=== PATIENT | female | born 1980 | race Caucasian/White ===

== ENCOUNTER 2017-08-27 20:02 | Emergency (ER) | payer MEDICAID ==
[2017-08-27 20:08] VITALS: BP 130/103
[2017-08-27] MEDS ORDERED: CETI-176 PO (20:12)
--- NOTE | 2017-08-27 20:19 | ER Report ---
History and Physical Time Seen By MD: 20:19 Hx. of Stated Complaint: PATIENT HIT HER HEAD ON A WOODEN SHELF ABOUT AN HOUR AND HALF AGO, PATIENT DENIES ANY LOC OR VOMITING. PATIENT TOOK IBPROPHEN AND IT SEEMS TO HAVE HELPED. HPI/ROS CHIEF COMPLAINT: Hit head HISTORY OF PRESENT ILLNESS: 36-year-old female patient presents to emergency room with complaint of hitting her head. Patient states she was playing laser tag with her children and her friend. She is crawling through a tunnel and ran right into a corner. She states that she did not have any loss of consciousness. Patient states she had significant amounts of pain to her head. She states that when she felt her head that there was an indentation. She states it is swollen since then. She denies any nausea, vomiting, dizziness, visual changes. She states she did take ibuprofen for this and feel significantly better at this time. Allergies: Coded Allergies: No Known Drug Allergies (Unverified , 08/27/17) Home Meds Reported Medications Cetirizine Hcl (ZYRTEC) 10 Mg Tablet, 10 MG PO QDAY, TAB 08/27/17 Past Medical/Surgical History Patient has a past medical history of migraines, asthma. Patient has surgical history of section, skin biopsy. Reviewed Nurses Notes: Yes Hx Substance Use Disorder: No Hx Alcohol Use: No Constitutional Vital Sign - Last 24 Hours 08/27/17 20:08 Temp 98.3 Pulse 82 Resp 16 B/P (MAP) 130/103 Pulse Ox 97 Physical Exam General appearance: Alert no distress. Respiratory: Chest is non tender, lungs are clear to auscultation. Cardiac: Regular rate and rhythm. Neuro: Patient is alert and oriented 4, cranial nerves II through XII grossly intact. DIFFERENTIAL DIAGNOSIS: After history and physical exam differential diagnosis was considered for head injury including but not limited to concussion, skull fracture, intraparenchymal contusion, subarachnoid, subdural and epidural hematoma. Medical Decision Making ED Course/Re-evaluation ED Course Patient was admitted exam room, history and physical were obtained. Differential diagnoses were considered. Examination patient was alert and oriented, cranial nerves II through XII grossly intact. Patient does have a bump on the left side of her forehead. He is tender to touch. We discussed doing a CT scan of the head. Patient asked if it was necessary to do the CT scan. I discussed with the patient that I did not believe that there be any intracranial hemorrhage, any skull fracture, however I want to go ahead and do that to put her mind at ease. Patient states that she would be okay waiting. She states she does feel better with ibuprofen. We did discuss things to watch out for including but not limited to uncontrollable vomiting, dizziness, confusion, increased irritability or difficulty to arouse. I did ask if she had a friend who would be able to stay with her tonight. Patient states she was able to assess somebody stay with her tonight. Patient states she would like to go home at this time. We will go ahead and discharge patient home and she is to follow-up with primary care provider next week. Patient verbalized understanding and agreement with plan. Decision to Disposition Date: August 27, 2017 Decision to Disposition Time: 20:38 Depart Departure Latest Vital Signs Vital Signs Date Time Temp Pulse Resp B/P (MAP) Pulse Ox O2 Delivery O2 Flow Rate FiO2 08/27/17 20:08 98.3 82 16 130/103 97 Impression: Primary Impression: Concussion Condition: Improved Disposition: HOME OR SELF-CARE Referrals: DURAN SIMON PA-C (PCP) Patient Instructions: Concussion (ED) Additional Instructions: Get plenty of rest. Limit activity by pain. Limit TV and computer time. Monitor for confusion, increased irritability, uncontrollable vomiting, worsening headache or difficulty to arouse. Return to the ER if those are to occur. Follow up with your primary care provider in the next week. Problem Qualifiers Primary Impression: Concussion Encounter type: initial encounter Loss of consciousness presence/duration: without LOC Qualified Codes: S06.0X0A - Concussion without loss of consciousness, initial encounter ISABELA WHEAT August 27, 2017 20:18
== END 2017-08-27 20:46 | disposition home or self-care (01) ==
LOC: ER 20:18
DX: S06.0X0A Concussion without loss of consciousness, initial encounter (principal)
CPT/HCPCS: 99282

== ENCOUNTER 2017-12-04 19:37 | Emergency (ER) | payer MEDICAID ==
[~2017-12-04 19:37] MED LIST: CETI-176 PO
[2017-12-04 19:40] VITALS: BP 120/98
[2017-12-04] MEDS ORDERED: OXYM30MI5 NS (19:45)
[2017-12-04] MEDS ORDERED: MONT10TA PO (19:45)
[2017-12-04] MEDS ORDERED: LORA10CA3 PO (19:45)
== END 2017-12-04 20:38 | disposition left against medical advice (07) ==
LOC: ER 20:36
DX: Z53.21 Procedure and treatment not carried out due to patient leaving prior to being seen by health care provider (principal)

== ENCOUNTER → 2017-12-06 | Outpatient (REF) | payer MEDICAID ==
[~2017-12-06] MED LIST changes: +LORA10CA3 PO; +MONT10TA PO; +OXYM30MI5 NS
== END ==
LOC: ZZSENDIN 16:51
PROVIDERS: ATTEND Physician Assistant Medical
DX: M25.579 Pain in unspecified ankle and joints of unspecified foot (principal)
CPT/HCPCS: 85651

== ENCOUNTER → 2018-01-31 | Outpatient (CLI) | payer MEDICAID ==
[~2018-01-31] MED LIST changes: +ASCO-182 PO; +DIPH-740 PO; +IBUP-136 PO; +PRED-1 PO; +PREN-127 PO; +VITA1CAP46 PO
[2018-01-31 11:12] LABS: PLATELET COUNT, AUTOMATED 409 K/uL (150-450)
== END ==
LOC: LAB 10:51
PROVIDERS: ATTEND Internal Medicine
DX: E61.1 Iron deficiency (principal); R53.83 Other fatigue; M79.605 Pain in left leg
CPT/HCPCS: 36415; 82040; 82247; 82306; 82310; 82374; 82435; 82565; 82607; 82728; 82746; 82947; 83540; 83550; 83735; 84075; 84132; 84155; 84295; 84443; 84450; 84460; 84520; 85025; 85379

== ENCOUNTER → 2018-02-16 | Outpatient (CLI) | payer MEDICAID ==
[~2018-02-16] MED LIST changes: +FERR-53 PO
--- NOTE | 2018-02-16 12:29 | RADIOLOGY IMAGING REPORT ---
FACILITY: [facility] [place] PATIENT NAME: Geeta Angulo : 1980 MR: [id number] V: [id number] EXAM DATE: ORDERING PHYSICIAN: BONIFACIO GLOVER TECHNOLOGIST: Location: [facility] Patient: Geeta Angulo : 1980 Visit/Account:[id number] Date of Sevice: 02/16/2018 Exam type: VENOUS DOPP LOW LEFT EXTREMITY History: pain left upper calf Comparison: None. Findings: Left lower extremity veins were imaged including the left common femoral vein greater saphenous vein superficial femoral vein popliteal vein posterior tibial vein peroneal vein anterior tibial vein reve aling no evidence of intraluminal thrombi the veins were compressible and demonstrated augmentation IMPRESSION: 1. No sonographic evidence DVT involving the left lower extremity veins Report Dictated By: Raya Sosa MD at 02/16/2018 12:24 PM Report E-Signed By: Raya Sosa MD at 02/16/2018 12:25 PM WSN:[email or web address]
== END ==
LOC: RAD 10:11
PROVIDERS: ATTEND Internal Medicine
DX: M79.662 Pain in left lower leg (principal)

== ENCOUNTER → 2018-03-21 | Outpatient (CLI) | payer MEDICAID | LOC: RAD 13:35 | PROVIDERS: ATTEND Psychiatry & Neurology Neurology | DX: Z02.9 Encounter for administrative examinations, unspecified (principal) ==

== ENCOUNTER → 2018-03-30 | Outpatient (CLI) | payer MEDICAID ==
--- NOTE | 2018-03-30 15:36 | RADIOLOGY IMAGING REPORT ---
FACILITY: [facility] [place] PATIENT NAME: Geeta Angulo : 1980 MR: [id number] V: [id number] EXAM DATE: ORDERING PHYSICIAN: DYLAN BENAVIDES TECHNOLOGIST: [place] [facility] [place] Geeta Angulo : 1980 Visit/Account:[id number] Date of Sevice: 03/30/2018 Exam type: LUMBAR SPINE COMP W/FLEX/EXT History: Carotid back pain radiating to hips, worsening over the last few weeks Comparison: None. Findings: Six views of the lumbar spine were submitted There are four nonrib-bearing lumbar-type vertebral bodies present and a sacralized transitional lumb ar vertebra. There is a small rudimentary disc space at the transitional vertebra and the sacrum. T here is no evidence of acute fractures or subluxations. The remaining disc spaces appear well-preser ed IMPRESSION: 1. Four nonrib-bearing lumbar type vertebra with a sacralized transitional lumbar segment. Is a sma ll rudimentary disc space at this level. Disc spaces otherwise appear well-preserved with no evidence of acute fractures or subluxations Report Dictated By: Raya Sosa MD at 03/30/2018 3:29 PM Report E-Signed By: Raya Sosa MD at 03/30/2018 3:32 PM WSN:[email or web address]
== END ==
LOC: RAD 12:37
PROVIDERS: ATTEND Psychiatry & Neurology Neurology
DX: Q76.49 Other congenital malformations of spine, not associated with scoliosis (principal)
CPT/HCPCS: 72114

== ENCOUNTER → 2018-05-10 | Outpatient (CLI) | payer MEDICAID ==
[~2018-05-10] MED LIST changes: +FLUT16SP19 NS; +NYST100016 PO; +PANT40TA65 PO
[2018-05-10 12:09] LABS: PLATELET COUNT, AUTOMATED 320 K/uL (150-450)
== END ==
LOC: LAB 11:53
PROVIDERS: ATTEND Internal Medicine
DX: M79.605 Pain in left leg (principal); E61.1 Iron deficiency; R53.83 Other fatigue
CPT/HCPCS: 36415; 82040; 82247; 82310; 82374; 82435; 82565; 82728; 82947; 83540; 83550; 84075; 84132; 84155; 84295; 84450; 84460; 84520; 85025

== ENCOUNTER 2018-09-02 09:22 | Outpatient (RCR) | payer MEDICAID ==
[2018-06-17 10:28] VITALS: BP 135/88
[2018-06-17 11:54] LABS: PLATELET COUNT, AUTOMATED 305 K/uL (150-450)
--- NOTE | 2018-06-18 07:59 | ONCOLOGY CONSULTATION ---
EVENT DATE: June 17, 2018 REFERRING PHYSICIAN Gideon Farah MD REASON FOR CONSULTATION Evaluation and management of patient with history of iron deficiency anemia. HEMATOLOGY HISTORY Patient is a 37-year old female who moved to [place] three years ago from [place] and patient had stroke-like episode when she came to [place] and patient was found to have anemia and hypoxemia. She had a history of iron deficiency anemia before. She had excessive bleeding during her menstruations. Patient used multi-vitamins and iron studies but she stopped her iron studies about two to three weeks ago. She responded to iron supplementation before. She also gained weight and her TSH check was normal. She had migraine headaches and has been seen by neurologist in the past and MRI of the brain showed malformation but does not require any surgery at the moment. She has also tested positive for BETSY and followed by informatica mdm developer but no definitive diagnosis is made so far. She has also episodes of what looks like Raynaud's phenomenon. She had CBC done in April 2018, which showed white count 8.1, hemoglobin 15.5, hematocrit 48.6, platelets 320,000. Her chem panel was normal except for chloride 108. Iron studies showed serum iron 720, TIBC 350, iron saturation 20.3% and ferritin was 15, which was up from 5 before. B12 was normal at 709 and folate was more than 22.3 in January 2018. Patient denies any constitutional symptoms but she is complaining of being extremely fatigued and tired all the time. PAST MEDICAL HISTORY 1. Iron deficiency anemia. 2. 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 3. Allergies with asthma. 4. Migraine. PAST SURGICAL HISTORY 1. Skin cancer removal. 2. Caesarean section in 2005. FAMILY HISTORY Maternal grandmother had breast cancer. Paternal grandmother had acute leukemia. Paternal cousin had chronic leukemia. Father is treated with phlebotomy session. She is not sure if it is due to polycythemia or hemochromatosis. SOCIAL HISTORY Patient is . She is a single mom. She has two children. 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 She denies any abuse of tobacco, alcohol or illicit drugs. CURRENT MEDICATION Benadryl 25 mg every six hours p.r.n.. ALLERGIES PROCHLORPERAZINE, which makes her, as per patient said, "got crazy". REVIEW OF SYSTEMS CONSTITUTIONAL: No appetite or weight change. No fever, chills or sweating. No recent infection. HEENT: Ears: No tinnitus or hearing problem. Nose: No nasal discharge or epistaxis. Throat: No sore throat or mouth ulcers. Eyes: No diplopia or visual changes. RESPIRATORY: No shortness of breath. No cough, expectoration or hemoptysis. CARDIOVASCULAR: No chest pain, orthopnea, or paroxysmal nocturnal dyspnea (PND). No edema. No palpitations. GASTROINTESTINAL: She has constipation. GENITOURINARY: She has heavy periods. MUSCULOSKELETAL: She has pain in her knees. NEUROLOGICAL: No tingling or numbness in the hands or feet. No headaches or convulsions. HEMATOLOGIC/LYMPHATIC: She is extremely fatigued and tired. SKIN: No skin rash or lumps. PSYCHIATRIC: No anxiety or depression. PHYSICAL EXAMINATION GENERAL: Looks stable. Well-developed, well-nourished, and in no acute distress. VITAL SIGNS: Blood pressure 135/88, pulse 81 per minute, respirations 16 per minute, temperature 98.5, pulse ox 96% on room air. HEENT: Head: Atraumatic. No sinus tenderness to palpation. Eyes: No icterus or conjunctivitis. Mouth and Throat: No oral thrush or mucositis. NECK: Supple. No cervical or supraclavicular lymphadenopathy. LUNGS: Clear to auscultation and percussion bilaterally. HEART: Regular rate and rhythm. No gallops, murmurs, clicks or rubs. ABDOMEN: Soft and lax. No tenderness. No hepatosplenomegaly. No masses. EXTREMITIES: No cyanosis, clubbing or edema. LYMPHATICS: No peripheral lymphadenopathy. NEUROLOGICAL: Conscious, alert and oriented x3. No focal motor or sensory deficits. PSYCHIATRIC: Mood and affect appear normal. SKIN: No skin rash, bruise or purpuric eruption. IMPRESSION History of iron deficiency anemia and the patient showed me report of her CBC in the past when she was in [place], which actually showed microcystic polycythemia. Her red blood cell count was high but her MCV was low and she was anemic at 10 g/dL. I am planning to repeat her iron studies including ferritin and because of her underlying inflammatory disease I am planning to check also soluble transferrin receptor assay, which if it comes back high this will make the diagnosis of iron deficiency confirmed. For her anemia also, I am planning to run the serum protein electrophoresis, B12 and folate levels, methylmalonic acid assay and red cell folate. I will check also her erythropoietin level. I am planning to see her after that for further evaluation and management. PLAN 1. CBC. 2. Retic count. 3. Haptoglobin. 4. Serum protein electrophoresis. 5. Erythropoietin level. 6. Iron studies with ferritin. 7. Soluble transferrin receptor assay. 8. B12 and folic acid level. 9. Methylmalonic acid assay. 10. Red cell folate. 11. Patient to return in one week for further evaluation and management. 12. Patient to contact us for any new concerns or complaints. MARIAM
[2018-07-01 10:02] VITALS: BP 124/86
--- NOTE | 2018-07-01 21:33 | [facility] ONCOLOGY NOTE ---
EVENT DATE: July 01, 2018 DIAGNOSIS Iron deficiency anemia. CHIEF COMPLAINT Patient is here today for followup of her iron deficiency anemia. HEMATOLOGY HISTORY Patient is a 37-year old female who moved to [place] three years ago from [place]. Patient had stroke-like episode when she came to [place], and patient was found to have anemia and hypoxemia. She had a history of iron deficiency anemia before. She had excessive bleeding during her menstruations. Patient used multivitamins and iron supplements, but she stopped her iron supplements about two to three weeks ago. She responded to iron supplementation before. She also gained weight, and her TSH check was normal. She had migraine headaches and has been seen by neurologist in the past. MRI of the brain showed malformation, but does not require any surgery at the moment. She has also tested positive for BETSY and followed by dental billing specialist, but no definitive diagnosis is made so far. She has also episodes of what looks like Raynaud phenomenon. She had CBC done in April 2018, which showed white count 8.1, hemoglobin 15.5, hematocrit 48.6, platelets 320,000. Her chem panel was normal except for chloride 108. Iron studies showed serum iron 720, TIBC 350, iron saturation 20.3%, and ferritin was 15, which was up from 5 before. B12 was normal at 709, and folate was more than 22.3 in January 2018. Patient denies any constitutional symptoms, but she is complaining of being extremely fatigued and tired all the time. Repeat CBC showed white count 8.1, hemoglobin 15.8, hematocrit 47.3, platelets 305,000. Haptoglobin level was 149. Absolute retic was 0.0674. Serum iron 76, TIBC 370, iron saturation 20.5%, and ferritin was 10. Soluble transferrin receptor assay was 4.2. Vitamin B12 level was 672. Serum folate was more than 22.3. Erythropoietin level was 22. HISTORY OF PRESENT ILLNESS Patient is here today for followup of her iron deficiency anemia. She is doing fine currently except having mild fatigue and dry cough. PAST MEDICAL HISTORY 1. Iron deficiency anemia. 2. Chronic inflammation or autoimmune disease with positive BETSY with what looks like Raynaud phenomenon. 3. Allergies with asthma. 4. Migraine. PAST SURGICAL HISTORY 1. Skin cancer removal. 2. Caesarean section in 2005. FAMILY HISTORY Maternal grandmother had breast cancer. Paternal grandmother had acute leukemia. Paternal cousin had chronic leukemia. Father is treated with phlebotomy session. She is not sure if it is due to polycythemia or hemochromatosis. SOCIAL HISTORY Patient is . She is a single mom. She has two children. 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 She denies any abuse of tobacco, alcohol, or illicit drugs. CURRENT MEDICATION Benadryl 25 mg every six hours p.r.n.. ALLERGIES PROCHLORPERAZINE which makes her, as per patient said, "go crazy." REVIEW OF SYSTEMS CONSTITUTIONAL: No appetite or weight change. No fever, chills, or sweating. No recent infection. HEENT: Ears: No tinnitus or hearing problem. Nose: No nasal discharge or epistaxis. Throat: No sore throat or mouth ulcers. Eyes: No diplopia or visual changes. RESPIRATORY: No shortness of breath. She has a dry cough. No expectoration or hemoptysis. CARDIOVASCULAR: No chest pain, orthopnea, or paroxysmal nocturnal dyspnea (PND). No edema. No palpitations. GASTROINTESTINAL: No nausea or vomiting. No diarrhea or constipation. No change in bowel movements. No heartburn or swallowing difficulties. No abdominal pain. No jaundice. No hematemesis, melena, or rectal bleeding. GENITOURINARY: No hematuria or dysuria. MUSCULOSKELETAL: No pain in the muscles, joints, or bones. NEUROLOGICAL: No tingling or numbness in the hands or feet. No headaches or convulsions. HEMATOLOGIC/LYMPHATIC: No bleeding or easy bruising. No weakness. She is fatigued. No enlarged lymph nodes. SKIN: No skin rash or lumps. PSYCHIATRIC: No anxiety or depression. PHYSICAL EXAMINATION GENERAL: Looks stable. Well developed, well nourished, and in no acute distress. VITAL SIGNS: Blood pressure 124/86, pulse 82 per minute, respirations 16 per minute, temperature 97, pulse ox 94% on room air. HEENT: Head: Atraumatic. No sinus tenderness to palpation. Eyes: No icterus or conjunctivitis. Mouth and throat: No oral thrush or mucositis. NECK: Supple. No cervical or supraclavicular lymphadenopathy. LUNGS: Clear to auscultation and percussion bilaterally. HEART: Regular rate and rhythm. No gallops, murmurs, clicks, or rubs. ABDOMEN: Soft and lax. No tenderness. No hepatosplenomegaly. No masses. EXTREMITIES: No cyanosis, clubbing, or edema. LYMPHATICS: No peripheral lymphadenopathy. NEUROLOGICAL: Conscious, alert, and oriented times three. No focal motor or sensory deficits. PSYCHIATRIC: Mood and affect appear normal. SKIN: No skin rash, bruise, or purpuric eruption. DIAGNOSTIC DATA CBC showed white count 8.1, hemoglobin 15.8, hematocrit 47.3, platelets 305,000. Haptoglobin was 149. Absolute reticulocyte was 0.674. Serum ferritin was 10, iron 76, TIBC 370, iron saturation 20.5%. Soluble transferrin receptor assay was 4.2. The vitamin B12 level was 672. Serum folate was more than 22.3, and erythropoietin level was 22. ASSESSMENT Iron deficiency anemia with microcystic polycythemia, most probably due to iron supplementation in the presence of anemia. Her current CBC looks normal, but her iron studies showed evidence of iron deficiency. Her serum ferritin is only 10, saturation 20.5%, TIBC 370, serum iron 76. Soluble transferrin receptor assay was high normal at 4.2. I am planning to supplement her with iron. I am planning to give her ferrous sulfate 325 mg three times daily. I will see her in two months from now with repeat CBC and iron studies with ferritin to decide about further management. PLAN 1. Ferrous sulfate 325 mg t.i.d. with meals. 2. Patient to return in two months with CBC, iron studies with ferritin. 3. Patient to contact us for any new concerns or complaints. MARIAM
[2018-08-31 09:14] LABS: PLATELET COUNT, AUTOMATED 324 K/uL (150-450)
[2018-08-31 09:23] VITALS: BP 119/76
[2018-09-02 09:31] VITALS: BP 120/89
[2018-09-02] MEDS ORDERED: CETI10CA8 PO (09:35)
--- NOTE | 2018-09-02 11:57 | ONCOLOGY FOLLOW UP NOTE ---
EVENT DATE: September 02, 2018 DIAGNOSIS Iron deficiency anemia. CHIEF COMPLAINT Patient is here today for followup of her iron deficiency anemia. HEMATOLOGY HISTORY Patient is a 37-year old female who moved to [place] three years ago from [place]. Patient had stroke-like episode when she came to [place], and patient was found to have anemia and hypoxemia. She has a history of iron deficiency anemia. She reports excessive bleeding during her menses. She did use multivitamin and iron supplements but stopped those in early June 2018. She has responded well to iron supplementation in the past. Most recently, she has been gaining weight and GP checked her TSH, which was normal. She also has a history of migraine headaches and has been seen by Neurology in the past. MRI of the brain showed Chiari malformation but does not require any surgery at that time. She has also had a positive BETSY in the past and is followed by rheumatology, although no definitive diagnosis has been made so far. The patient is quite frustrated about that. She has also had episodes of what sounds like Raynaud phenomenon. Her hemoglobin has been normal in the 15.5 range. Hematocrit has also been normal. She had a chem panel which did reveal a mildly elevated chloride at 108 in the past. B12 and folate have been normal in the recent past. TSH back in January 2018 was normal at 2.58. Erythropoietin level was 22. At her last visit in June, we instructed her to continue with iron sulfate 325 mg t.i.d. with meals. HISTORY OF PRESENT ILLNESS Geeta is here today for ongoing followup regarding her iron deficiency anemia. Currently, she reports that she is doing better, although does still have some mild fatigue She is still having difficulty with her weight and, in fact, does not want us to tell her what her weight was today when vital signs were taken. She reports that she is a bit frustrated about her iron deficiency diagnosis, which apparently spans back to a couple of years. She tells me she is seeing rheumatology as noted above. Patient tells me that in the past, prior to her last visit with us in June, she was instructed to discontinue iron and attributes that to her decreased ferritin and worsening fatigue. Today, she tells me that she is back on oral iron since her visit visit, although admits at times she does forget and is not 100% compliant. Additionally, she tells me that she has only been taking one tablet a day but tells me that she must have misunderstood instructions. She is also quite anxious about iron deficiency anemia and its relation to possible colon cancer. She tells me that this causes her quite a bit of anxiety. She has been tolerating oral iron well. Energy levels are much improved. PAST MEDICAL HISTORY 1. Iron deficiency anemia. 2. Chronic inflammation or autoimmune disease with positive BETSY with what looks like Raynaud phenomenon. 3. Allergies with asthma. 4. Migraine. PAST SURGICAL HISTORY 1. Skin cancer removal. 2. Caesarean section in 2005. FAMILY HISTORY Maternal grandmother had breast cancer. Paternal grandmother had acute leukemia. Paternal cousin had chronic leukemia. Father is treated with phlebotomy session. She is not sure if it is due to polycythemia or hemochromatosis. SOCIAL HISTORY Patient is . She is a single mom. She has two children. 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 She denies any abuse of tobacco, alcohol, or illicit drugs. ALLERGIES PROCHLORPERAZINE, which as per patient makes her "go crazy." CURRENT MEDICATION 1. Benadryl 25 mg one p.o. every six hours p.r.n. 2. Zyrtec 10 mg daily. 3. Iron sulfate 325 mg one p.o. q.d. 4. Pantoprazole 40 mg p.o. q.d. 5. Ibuprofen 200 mg one p.o. every six hours p.r.n. 6. Fluticasone nasal spray two sprays to each nostril daily. REVIEW OF SYSTEMS CONSTITUTIONAL: Patient denies any recent fevers, chills or night sweats. No recent infections. HEENT: No vision changes. No tinnitus. No mouth sores. No dysphagia or odynophagia. RESPIRATORY: No shortness of breath. She has only occasional dyspnea on exertion. She has only an occasional dry cough. No sputum production or hemoptysis. No pleuritic chest pain. CARDIOVASCULAR: No chest pain, syncope or presyncope. GASTROINTESTINAL: No abdominal pain. She reports occasional nausea related to her other condition. Benadryl helps her nausea. No vomiting. No diarrhea or constipation, changes in bowel movements, bright red blood per rectum or melena. Appetite is normal. GENITOURINARY: No dysuria or hematuria. MUSCULOSKELETAL: No focal areas of pain in the muscles, joints or bones. NEUROLOGICAL: No headaches or seizure convulsions. She has had some migraines in the past. No numbness or tingling in the hands or feet. HEMATOLOGIC/LYMPHATIC: No bleeding. No easy bruising. ENDOCRINE: No heat or cold intolerance. She does have some fatigue, although this has improved since her last visit a few months ago. SKIN: No rash, suspicious lumps or bumps. No generalized pruritus. PSYCHIATRIC: Patient reports anxiety related to her diagnoses. She denies any severe anxiety, severe depression, suicidal or homicidal ideation. The remainder of a 12-point review of systems is performed today and is otherwise negative. PHYSICAL EXAMINATION VITAL SIGNS: Weight 170.2 pounds, which patient did not want to be told about, T 99.1, P 75, R 16, BP 120/89, oxygen saturation 95% room air. Currently rates pain level at "0/10". Currently rates fatigue level as "0/10". Currently reports occasional leg pain. GENERAL: This is a pleasant 37-year old woman who appears well-hydrated, well- nourished and is in no acute distress. HEAD: Atraumatic, normocephalic. EYES: Sclerae anicteric. ENT/MOUTH: Moist mucous membranes. No suspicious oral lesions. NECK: Supple. No lymphadenopathy. LUNGS: Clear breath sounds to auscultation bilaterally. CARDIAC: Regular rate and rhythm. No ectopy. ABDOMEN: Soft, nontender, nondistended. Bowel sounds positive x4. NEURO: Patient is awake, alert and oriented x3. No focal motor or sensory deficits. PSYCHIATRIC: Patient has some situational anxiety. Otherwise, mood and affect are appropriate. DERM: No rash, petechiae or purpura. MUSCULOSKELETAL: Gait and ambulation are steady. DIAGNOSTIC DATA CBC on August 31, 2018: WBC 6.5, ANC 4.1, hemoglobin 16.1, hematocrit 48.5%, platelets 324,000. Iron panel: Total iron 64, normal. TIBC 341, normal. Ferritin 14, up from previous 10 on June 17, 2018. Iron saturation 18.8%, up from previous 20.5% on June 17, 2018. IMPRESSION AND PLAN This is a pleasant 37-year old woman with history of iron deficiency anemia with microcystic polycythemia, most probably due to iron supplementation in the presence of anemia. Her current CBC looked normal, although she does have a normocytic/normochromic polycythemia, again likely related to iron supplementation. Her iron labs have improved even though she is only taking one tablet per day. Her ferritin is increased up to 14 with iron sat at nearly 19%. She has only been taking one a day and I again discussed if she is able to tolerate this she should be taking iron three times a day with meals. We discussed potential constipation and means to combat that. She does tolerate that well. She is feeling much better from an energy standpoint. She did have many questions as she does have quite a bit of anxiety and had many questions about potential for colon cancer related to her anemia and potential for other life-threatening complications. We discussed this at length today. I do feel that by the end of our visit patient seemed comfortable and was in agreement with our plan. Patient has also seen several physicians in the past and was concerned about management of her oral iron. 1. Patient will resume ferrous sulfate at 325 mg t.i.d. with meals. We discussed stool softeners, prune juice and MiraLax p.r.n. for constipation. 2. Explained to patient that if she is to see other physicians and if they want to adjust her oral iron regimen she may certainly ask them to contact our office first to clear this with us/Dr. Felder. I do not think she is in any grave risk at this point as she is not having excessive bleeding and is feeling well. 3. Nausea: Unrelated to iron. Patient reports that this is related to her other inflammatory and rheumatological condition. She has tried to decrease herself off Benadryl and uses this only p.r.n. I have recommended that she try jerson candy as many of our oncology patients have good success with that for their nausea. 4. Patient will return to clinic in three months for followup. 5. Patient will repeat labs prior to her next followup with CBC, iron panel to include ferritin. MTDD
== END 2018-09-15 ==
LOC: ONC 09:22
PROVIDERS: ATTEND Internal Medicine Hematology
DX: D75.1 Secondary polycythemia (principal); D50.9 Iron deficiency anemia, unspecified; K59.00 Constipation, unspecified; R53.83 Other fatigue; R11.0 Nausea
CPT/HCPCS: 36415; 82607; 82668; 82728; 82746; 83010; 83540; 83550; 84160; 84165; 84238; 85025; 85045; 99202; G0463; 99212

== ENCOUNTER 2018-11-25 14:41 | Outpatient (RCR) | payer MEDICAID ==
[~2018-11-25 14:41] MED LIST changes: +CETI10CA8 PO
== END 2018-12-06 14:05 | disposition home or self-care (01) ==
LOC: SPU 14:41
PROVIDERS: ATTEND Internal Medicine Hematology
DX: Z02.9 Encounter for administrative examinations, unspecified (principal)